=== PATIENT | male | born 1935 | race Hispanic/Latino ===

== ENCOUNTER 2018-11-02 11:45 | Outpatient (RCR) | payer MEDICARE, BC | END 2018-11-16 | LOC: WCC 11:45 | PROVIDERS: ATTEND Family Medicine | DX: I70.234 Atherosclerosis of native arteries of right leg with ulceration of heel and midfoot (principal); I70.244 Atherosclerosis of native arteries of left leg with ulceration of heel and midfoot; L97.428 Non-pressure chronic ulcer of left heel and midfoot with other specified severity; L97.421 Non-pressure chronic ulcer of left heel and midfoot limited to breakdown of skin; L97.418 Non-pressure chronic ulcer of right heel and midfoot with other specified severity; L97.411 Non-pressure chronic ulcer of right heel and midfoot limited to breakdown of skin; L97.419 Non-pressure chronic ulcer of right heel and midfoot with unspecified severity; I70.203 Unspecified atherosclerosis of native arteries of extremities, bilateral legs; I99.8 Other disorder of circulatory system; I10 Essential (primary) hypertension; I50.9 Heart failure, unspecified; E78.00 Pure hypercholesterolemia, unspecified; I25.10 Atherosclerotic heart disease of native coronary artery without angina pectoris; K21.9 Gastro-esophageal reflux disease without esophagitis; Z01.810 Encounter for preprocedural cardiovascular examination; Z01.811 Encounter for preprocedural respiratory examination ==